=== PATIENT | male | born 1985 | race Caucasian/White ===

== ENCOUNTER → 2017-10-20 | Outpatient (REF) | LOC: AUD 09:30 | PROVIDERS: ATTEND Internal Medicine | DX: Z01.10 Encounter for examination of ears and hearing without abnormal findings (principal) | CPT/HCPCS: 92552 ==

== ENCOUNTER 2017-11-02 03:34 | Emergency (ER) | payer OTHER ==
[2017-11-02 03:37] VITALS: BP 135/95
[2017-11-02] MEDS ORDERED: LEVO75TA73 PO (03:40)
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
== END 2017-11-02 03:55 | disposition home or self-care (01) ==
LOC: ER 03:37
DX: S63.501A Unspecified sprain of right wrist, initial encounter (principal); V48.5XXA Car driver injured in noncollision transport accident in traffic accident, initial encounter
CPT/HCPCS: 99282